=== PATIENT | female | born 1990 | race Caucasian/White ===

== ENCOUNTER 2018-04-15 09:17 | Emergency (ER) | payer SELFPAY ==
[2018-04-15] MEDS ORDERED: HYDROCODONE/APAP 5/325 MG TAB ONE (10:02)
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
[2018-04-15 11:30] LABS: Urine Blood 2+ (NEG); Urine Glucose NEGATIVE (NEG); Urine Protein NEGATIVE (NEG); Urine Specific Gravity 1.015 (1.005-1.030); Urine pH 5.5 (5.0-7.0)
[2018-04-15 11:31] LABS: Urine Specific Gravity 1.015 (1.005-1.030)
== END 2018-04-15 11:18 | disposition home or self-care (01) ==
LOC: ER 09:17
DX: S83.8X1A Sprain of other specified parts of right knee, initial encounter (principal); S13.4XXA Sprain of ligaments of cervical spine, initial encounter; V49.40XA Driver injured in collision with unspecified motor vehicles in traffic accident, initial encounter
CPT/HCPCS: 72100; 72125; 81003; 81025; 99285